=== PATIENT | female | born 1955 | race Caucasian/White ===

== ENCOUNTER → 2021-04-12 | Day surgery (SDC) | payer MEDICARE ==
[~2021-04-12] VITALS: Ht 162.6 cm; Wt 49.0 kg
[~2021-04-12] MED LIST: IBUPROFEN800 M1 PO; K-DUR20 MEQ PO; LASIX20 MG PO; LIPITOR40 MG PO; ZESTRIL2.5 MG PO; ZOLOFT50 M1 PO
[2021-04-12 11:00] LABS: ALBUMIN 3.8 g/dL (3.4-5.0); ALKALINE PHOSHATASE 98 U/L (46-116); ALT 11 U/L (14-59); AST 22 U/L (15-37); BILIRUBIN - TOTAL <0.1 mg/dL (0.2-1.0); BUN 13 mg/dL (7-18); BUN/CREAT RATIO (CALC) 11.4 RATIO; CHLORIDE 101 mmol/L (98-107); CO2 (BICARBONATE) 28 mmol/L (21-32); CREATININE 1.14 mg/dL (0.51-0.95); GLOBULIN (CALCULATION) 4.5 g/dL; GLUCOSE 96 mg/dL (74-106); POTASSIUM 4.1 mmol/L (3.5-5.1); TOTAL PROTEIN 8.3 g/dL (6.4-8.2)
== END | disposition home or self-care (01) ==
LOC: FAS 09:27
PROVIDERS: Obstetrics & Gynecology
DX: N95.0 Postmenopausal bleeding (principal); R87.613 High grade squamous intraepithelial lesion on cytologic smear of cervix (HGSIL); N83.201 Unspecified ovarian cyst, right side; I10 Essential (primary) hypertension; I25.5 Ischemic cardiomyopathy; E78.5 Hyperlipidemia, unspecified; F41.9 Anxiety disorder, unspecified; I25.10 Atherosclerotic heart disease of native coronary artery without angina pectoris; F32.9 Major depressive disorder, single episode, unspecified; E78.00 Pure hypercholesterolemia, unspecified; I25.2 Old myocardial infarction; F17.200 Nicotine dependence, unspecified, uncomplicated; Z95.5 Presence of coronary angioplasty implant and graft
CPT/HCPCS: 36415; 80053; 93005; J1100; J1885; J1940; J2250; J2405; J2704; J3010; J7120

== ENCOUNTER → 2021-05-23 | Day surgery (SDC) | payer MEDICARE ==
[~2021-05-23] VITALS: Ht 162.6 cm; Wt 48.5 kg
[~2021-05-23] MED LIST changes: +ATIVAN1 MG PO; +DEXAMETHASONE 2M2 MG PO; +NORCO 5-325 TA1 EACH PO; +PRILOSEC20 MG PO
[2021-05-23 11:18] LABS: ALBUMIN 2.8 g/dL (3.4-5.0); BILIRUBIN - TOTAL 0.2 mg/dL (0.2-1.0); BUN/CREAT RATIO (CALC) 29.8 RATIO; CREATININE 0.94 mg/dL (0.51-0.95); GLOBULIN (CALCULATION) 4.6 g/dL; POTASSIUM 4.5 mmol/L (3.5-5.1); TOTAL PROTEIN 7.4 g/dL (6.4-8.2)
== END | disposition home or self-care (01) ==
LOC: FAS 06:35
PROVIDERS: Anesthesiology
DX: C53.9 Malignant neoplasm of cervix uteri, unspecified (principal); I25.10 Atherosclerotic heart disease of native coronary artery without angina pectoris; I10 Essential (primary) hypertension; I25.5 Ischemic cardiomyopathy; I25.2 Old myocardial infarction; F41.9 Anxiety disorder, unspecified; F32.A Depression, unspecified; D25.9 Leiomyoma of uterus, unspecified; E78.5 Hyperlipidemia, unspecified; Z79.82 Long term (current) use of aspirin; Z79.899 Other long term (current) drug therapy; Z88.8 Allergy status to other drugs, medicaments and biological substances; Z95.5 Presence of coronary angioplasty implant and graft; Z98.51 Tubal ligation status
CPT/HCPCS: 36415; 71045; 76000; 80053; C1788; J0690; J1100; J1644; J2001; J2250; J2405; J2704; J3010; J7120